=== PATIENT | male | born 1990 | race African-American/Black ===

== ENCOUNTER 2020-10-11 04:24 | Emergency (ER) | payer BC ==
[~2020-10-11] VITALS: Ht 175 cm; Wt 75.0 kg
[2020-10-11 04:25] VITALS: BP 133/96
--- NOTE | 2020-10-11 05:32 | ED General ---
General Chief Complaint: Cough/Cold/Flu Symptoms Stated Complaint: CHILLS,FEVER,CORRIGAN,COUGH Nursing Triage Note: fever, chills, body aches, lightheaded, nausea, loss taste/smell since tuesday. Nursing Sepsis Screen: No Definite Risk Source of Information: Patient Exam Limitations: No Limitations History of Present Illness Date Seen by Provider: Oct 11, 2020 Time Seen by Provider: 04:32 Initial Comments This 30-year-old young man presents to the emergency room with 4 days of flulike symptoms including fever, headache, myalgias, mild cough, and loss of taste and smell. He had a similar syndrome in November and tested positive for influenza. He denies any known exposures to COVID-19. Allergies and Home Medications Allergies Coded Allergies: No Known Drug Allergies (Unverified , 10/11/20) Home Medications No Active Prescriptions or Reported Meds Patient Home Medication List Home Medication List Reviewed: Yes Review of Systems Review of Systems Constitutional: see HPI EENTM: see HPI Respiratory: see HPI Cardiovascular: no symptoms reported Gastrointestinal: no symptoms reported Genitourinary: no symptoms reported Musculoskeletal: see HPI Skin: no symptoms reported Psychiatric/Neurological: See HPI Hematologic/Lymphatic: No Symptoms Reported Immunological/Allergic: no symptoms reported Past [id number]-[id number] Hx Past Med/Social Hx: Reviewed Nursing Past Med/Soc Hx Patient Social History Alcohol Use: Denies Use Recreational Drug Use: No Smoking Status: Never a Smoker 2nd Hand Smoke Exposure: No Recent Foreign Travel: No Contact w/Someone Who Travel: No Recent Infectious Disease Expo: No Recent Hopitalizations: No Immunizations Up To Date Tetanus Booster (TDap): Less than 5yrs Seasonal Allergies Seasonal Allergies: No Past Medical History Surgeries: Yes Orthopedic Respiratory: No Cardiac: No Neurological: No Genitourinary: No Gastrointestinal: No Musculoskeletal: No Endocrine: No HEENT: No Cancer: No Psychosocial: No Integumentary: No Blood Disorders: No Physical Exam Vital Signs Vital Signs - First Documented 10/11/20 04:25 Temp 37.6 Pulse 70 Resp 18 B/P (MAP) 133/96 (108) Pulse Ox 99 O2 Delivery Room Air Capillary Refill : Less Than 3 Seconds Height, Weight, BMI Height: '" Weight: lbs. oz. kg; 24.00 BMI Method: General Appearance: No Apparent Distress, WD/WN HEENT: PERRL/EOMI, Normal ENT Inspection Neck: Normal Inspection Respiratory: Lungs Clear, Normal Breath Sounds, No Accessory Muscle Use Cardiovascular: Regular Rate, Rhythm, No Edema, No Murmur Gastrointestinal: Normal Bowel Sounds, Soft, Tenderness (Mild across the lower abdomen with no point tenderness) Extremity: Normal Inspection, No Pedal Edema Neurologic/Psychiatric: Alert, Oriented x3, No Motor/Sensory Deficits, Normal Mood/Affect, client service executive II-XII Norm as Tested Skin: Normal Color, Warm/Dry Progress/Results/Core Measures Suspected Sepsis Recent Fever Within 48 Hours: Yes Infection Criteria Present: None New/Unexplained Altered Menta: No Sepsis Screen: No Definite Risk SIRS Temperature: Pulse: 70 Respiratory Rate: 18 Blood Pressure 133 /96 Mean: 108 Results/Orders Lab Results Laboratory Tests Test 10/11/20 04:35 Range/Units Coronavirus 2019 ([facility]) Positive H Negative Micro Results Microbiology 10/11/20 Influenza Types A,B Antigen ([facility]) - Final, Complete My Orders Orders - JANINE CORONA MD Influenza A And B Antigens (10/11/20 04:32) Covid 19 Inhouse Test (10/11/20 04:32) Vital Signs/I&O 10/11/20 10/11/20 04:25 04:25 Temp 37.6 Pulse 70 Resp 18 B/P (MAP) 133/96 (108) Pulse Ox 99 O2 Delivery Room Air Room Air Capillary Refill : Less Than 3 Seconds Blood Pressure Mean: 108 Progress Note : Progress Note Vital signs were normal. Patient was not in any respiratory distress. No resuscitation or immediate treatments were necessary. Influenza screen was negative. COVID-19 screen was positive. Departure Impression Primary Impression: COVID-19 Disposition: 01 HOME, SELF-CARE Condition: Stable Departure-Patient Inst. Decision time for Depature: 05:29 Referrals: NO,LOCAL PHYSICIAN (PCP/Family) Primary Care Physician Patient Instructions: Coronavirus Disease 2019 (COVID-19) Overview Add. Discharge Instructions: Remain in quarantine until released by the health department. Drink plenty of clear liquids to stay well-hydrated. You may take Tylenol (acetaminophen) up to 1000 mg every 6 hours and/or ibuprofen up to 600 mg every 6 hours as needed for fever or pain. Call or return to care if you have worsening symptoms or any questions or concerns. Supplements such as multivitamin, extra vitamin D and vitamin C, elderberry, and zinc may help speed your recovery. All discharge instructions reviewed with patient and/or family. Voiced understanding. Scripts No Active Prescriptions or Reported Meds JANINE CORONA MD Oct 11, 2020 05:32
== END 2020-10-11 05:38 | disposition home or self-care (01) ==
LOC: ER 04:31
DX: U07.1 COVID-19 (principal)
CPT/HCPCS: 87804; 99282; U0002; 87635